=== PATIENT | female | born 1985 | race Caucasian/White ===

== ENCOUNTER → 2021-12-11 13:08 | Outpatient (CLI) | payer OTHER, SELFPAY ==
--- NOTE | ~2021-12-11 | US_ITS ---
EXAMINATION: US transvaginal EXAM DATE: 12/11/2021 13:37 INDICATION: Pelvic pain, Abnormal uterine bleeding. Symptoms 3-4 weeks. TECHNIQUE: Pelvic transvaginal sonogram was performed. There are multiple grayscale and Doppler imag es available for interpretation. There is no prior study for comparison. FINDINGS: Uterus measures 7.4 x 3.5 x 4.6 cm, several small fibroids up to 1.5 and 1.3 cm. Endometri al stripe measures 7 mm, within normal limits. There is no free pelvic fluid. Right adnexa: The ovary measures 2.4 x 1.6 x 2.0 cm and is morphologically normal. Ovarian vascular f low confirmed. Left adnexa: The ovary measures 2.0 x 1.2 x 1.9 cm and is morphologically normal. Ovarian vascular fl ow confirmed. IMPRESSION: Several small fibroids. Reviewed, dictated and finalized at location B. IMPRESSION: Several small fibroids.
== END ==
PROVIDERS: Visit Provider Obstetrics & Gynecology Gynecologic Oncology
DX: R10.2 Pelvic and perineal pain (principal); N93.9 Abnormal uterine and vaginal bleeding, unspecified; D25.9 Leiomyoma of uterus, unspecified
CPT/HCPCS: 76830